=== PATIENT | female | born 1975 | race Caucasian/White ===

== ENCOUNTER 2017-01-13 17:57 | Emergency (ER) | payer MEDICAID, OTHER ==
[~2017-01-13] VITALS: Wt 61.0 kg
--- NOTE | 2017-01-13 18:38 | ERD ---
ER Documentation Chief Complaint Date/Time DATE: 01/13/17 TIME: 18:29 Chief Complaint FOUL-SMELLING VAG DISCHARGE X1 MONTH HPI 41-year-old female presents emergency department for vaginal odor for almost a month. She is sexually active with 2 partners. Her sexual partners has no symptoms. Last sexual activity was 1 week ago. Stated that she does not use tampons or pads. Last menstrual period was about a week ago. G3 and P3 1 ectopic with 6 abortions. Denies headache, dizziness, blurred vision, neck pain, shoulder pain, chest pain , abdominal pain, pelvic pain, vaginal discharge, vaginal bleeding, vaginal lesions, vaginal rash, back pain, nausea, vomiting, , possibility of being , trauma, recent antibiotic use in the last 3 months, fever, chills. No known drug allergies. No past medical history. No surgeries. Does not take any prescription medication at home. Social: Not working this time. Smokes about 20 sticks of cigarettes a day. Denies alcoholic beverages, use of illegal drugs. ROS All systems reviewed and are negative except as per history of present illness. Medications Home Meds Active Scripts Ibuprofen* (Motrin*) 600 Mg Tab, 600 MG PO Q8, #30 TAB Prov:KEN SMITH MD 01/13/17 Acetaminophen* (Tylophen*) 500 Mg Capsule, 1 CAP PO Q6H Y for PAIN AND OR ELEVATED TEMP, #20 CAP Prov:KELLEY HAMILTON F 01/13/17 Ibuprofen* (Motrin*) 600 Mg Tab, 600 MG PO Q8, #20 TAB Prov:EMY HAMILTONAR F 01/13/17 Allergies Allergies: Coded Allergies: No Known Allergy (Unverified , 01/13/17) Physical Exam Vitals Vital Signs Date Time Temp Pulse Resp B/P Pulse Ox O2 Delivery O2 Flow Rate FiO2 01/13/17 18:02 97.2 84 18 123/70 98 Physical Exam Const: [] Head: Atraumatic Eyes: Normal Conjunctiva ENT: Normal External Ears, Nose and Mouth. Neck: Full range of motion..~ No meningismus. Resp: Clear to auscultation bilaterally Cardio: Regular rate and rhythm, no murmurs Abd: Soft, non tender, non distended. Normal bowel sounds. There is no right upper/right lower/epigastric/left upper/lower abdominal tenderness and likely palpation. There is no pelvic tenderness light and palpation. Skin: No petechiae or rashes Back: No midline or flank tenderness. No CVA tenderness. Ext: No cyanosis, or edema Neur: Awake and alert Psych: Normal Mood and Affect Results 24 hrs Laboratory Tests Test 01/13/17 18:50 Urine Color YELLOW Urine Clarity SLIGHTLY CLOUDY Urine pH 5.0 Urine Specific [place] 1.021 Urine Ketones NEGATIVEmg/dL Urine Nitrite POSITIVEmg/dL Urine Bilirubin NEGATIVEmg/dL Urine Urobilinogen NEGATIVEmg/dL Urine Leukocyte Esterase NEGATIVELeu/ul Urine Microscopic RBC 1/HPF Urine Microscopic WBC 4/HPF Urine Squamous Epithelial Cells FEW/HPF Urine Bacteria FEW/HPF Urine Mucus FEW/HPF Urine Hemoglobin NEGATIVEmg/dL Urine Glucose NEGATIVEmg/dL Urine Total Protein NEGATIVEmg/dl Current Medications Medications (Trade) Dose Ordered Sig/Dolores Route PRN Reason Start Time Stop Time Status Last Admin Dose Admin Ceftriaxone Sodium (Rocephin) 250 mg ONCE ONCE IM 01/13/17 20:30 01/13/17 20:31 DC Azithromycin (Zithromax) 1,000 mg ONCE ONCE PO 01/13/17 20:30 01/13/17 20:31 DC Procedures/MDM 41-year-old female presents emergency department for vaginal odor for almost a month. She is sexually active with 2 partners. Her sexual partners has no symptoms. Last sexual activity was 1 week ago. Stated that she does not use tampons or pads. Last menstrual period was about a week ago. G3 and P3 1 ectopic with 6 abortions. Denies headache, dizziness, blurred vision, neck pain, shoulder pain, chest pain , abdominal pain, pelvic pain, vaginal discharge, vaginal bleeding, vaginal lesions, vaginal rash, back pain, nausea, vomiting, , possibility of being , trauma, recent antibiotic use in the last 3 months, fever, chills. No known drug allergies. No past medical history. No surgeries. Does not take any prescription medication at home. Social: Not working this time. Smokes about 20 sticks of cigarettes a day. Denies alcoholic beverages, use of illegal drugs. Physical exam: Unremarkable. Patient even and unlabored. Lung sounds are clear to auscultation. There is no right upper/right lower/epigastric/left upper/lower abdominal tenderness and likely palpation. There is no pelvic tenderness light and palpation. No CVA tenderness. Patient refuses to be examined on her vaginal area stating that she does not need this examination. Disease process was explained to the patient. Patient verbalized understanding and agreed with the plan of care. POC urine : Negative. Urinalysis: Positive nitrites. Slightly cloudy. Culture urine: Awaiting for results. Urine for gonorrhea and Chlamydia: Awaiting for results. Treatment: Ceftriaxone IM. Azithromycin 1 g p.o. Prescription: Motrin. Tylenol. Eloped prior to treatment at around 20:39. Departure Diagnosis: Primary Impression: Vaginal odor Condition: Stable KELLEY HAMILTON Jan 13, 2017 18:38 department for any new symptoms or any worsening of symptoms. All questions and concerns are answered. Patient verbalized understanding and agreed with the plan of care. KELLEY HAMILTON Jan 13, 2017 18:38
[2017-01-13 19:13] LABS: ADD UMIC YES; UR ASCORBIC ACID NEGATIVE (NEGATIVE); UR BACTERIA FEW /HPF (NONE SEEN); UR BILIRUBIN (Dip) NEGATIVE (NEGATIVE); UR BLOOD (Dip) NEGATIVE (NEGATIVE); UR CLARITY SLIGHTLY CLOUDY (CLEAR); UR COLOR YELLOW (YELLOW); UR GLUCOSE (Dip) NEGATIVE (NEGATIVE); UR KETONES (Dip) NEGATIVE (NEGATIVE); UR LEUKOCYTE ESTERASE (Dip) NEGATIVE Leu/ul (NEGATIVE); UR MUCUS FEW /HPF (NONE SEEN); UR NITRITE (Dip) POSITIVE (NEGATIVE); UR RBC 1 /HPF (0-5); UR SPECIFIC GRAVITY (Dip) 1.021 (1.003-1.030); UR SQUAMOUS EPITHELIAL CELL FEW /HPF (FEW); UR TOTAL PROTEIN (Dip) NEGATIVE (NEGATIVE); UR UROBILINOGEN (Dip) NEGATIVE (NEGATIVE)
[2017-01-13] MEDS ORDERED: ACET500C5 PO (20:05)
[2017-01-13] MEDS ORDERED: IBUP-1542 PO ×2 (20:05→21:41)
[2017-01-13] MEDS ORDERED: AZITHROMYCIN 250 MG TAB PO ONE (20:30)
[2017-01-13] MEDS ORDERED: CEFTRIAXONE 250 MG INJ IM ONE (20:30)
== END 2017-01-13 20:39 | disposition left against medical advice (07) ==
LOC: FTE 17:57
DX: N89.8 Other specified noninflammatory disorders of vagina (principal)
CPT/HCPCS: 81001; 87086; 87591; J0696; Z7502; Z7610; 99283

== ENCOUNTER 2017-01-13 21:32 | Emergency (ER) | payer OTHER ==
[~2017-01-13] VITALS: Ht 160 cm; Wt 61.0 kg
[~2017-01-13 21:32] MED LIST: ACET500C5 PO; IBUP-1542 PO
[2017-01-13] MEDS ORDERED: ONDANSETRON (ODT) 4 MG TAB ODT STA (21:34)
[2017-01-13 21:35] VITALS: Ht 160 cm; Wt 61.0 kg
[2017-01-13] MEDS ORDERED: IBUP-1542 PO (21:41)
[2017-01-13] MEDS ORDERED: CEFTRIAXONE 250 MG INJ IM ONE (22:00)
[2017-01-13] MEDS ORDERED: AZITHROMYCIN 250 MG TAB PO ONE (22:00)
--- NOTE | 2017-01-13 23:22 | ERD ---
ER Documentation Chief Complaint Date/Time DATE: 01/13/17 TIME: 23:19 Chief Complaint dysuria, HPI Patient is a 41-year-old female who presents for medications. The patient was seen just prior in the emergency department and was going to be treated for a possible STD with ceftriaxone and Zithromax however she had to leave to take care of and parent and said that she will come back. She rechecked into the emergency department to get her medications. The patient has already had a workup done on the previous visit today. She has no other complaints. She said that she has had vaginal discharge with a foul-smelling odor. ROS All systems reviewed and are negative except as per history of present illness. Medications Home Meds Active Scripts Ibuprofen* (Motrin*) 600 Mg Tab, 600 MG PO Q8, #30 TAB Prov:KEN SMITH MD 01/13/17 Acetaminophen* (Tylophen*) 500 Mg Capsule, 1 CAP PO Q6H Y for PAIN AND OR ELEVATED TEMP, #20 CAP Prov:KELLEY HAMILTON 01/13/17 Ibuprofen* (Motrin*) 600 Mg Tab, 600 MG PO Q8, #20 TAB Prov:KELLEY HAMILTON F 01/13/17 Allergies Allergies: Coded Allergies: No Known Allergy (Unverified , 01/13/17) PMhx/Soc Medical and Surgical Hx: pt denies Medical Hx, pt denies Surgical Hx Hx Alcohol Use: No Hx Substance Use: No Hx Tobacco Use: No Smoking Status: Unknown if ever smoked FmHx Family History: No diabetes Physical Exam Vitals Vital Signs Date Time Temp Pulse Resp B/P Pulse Ox O2 Delivery O2 Flow Rate FiO2 01/13/17 21:35 98.7 91 19 117/79 99 Physical Exam Const: No acute distress Head: Atraumatic Eyes: Normal Conjunctiva ENT: Normal External Ears, Nose and Mouth. Neck: Full range of motion..~ No meningismus. Resp: Clear to auscultation bilaterally Cardio: Regular rate and rhythm, no murmurs Abd: Soft, non tender, non distended. Normal bowel sounds Skin: No petechiae or rashes Back: No midline or flank tenderness Ext: No cyanosis, or edema Neur: Awake and alert Psych: Normal Mood and Affect Results 24 hrs Current Medications Medications (Trade) Dose Ordered Sig/Dolores Route PRN Reason Start Time Stop Time Status Last Admin Dose Admin Ceftriaxone Sodium (Rocephin) 250 mg ONCE ONCE IM 01/13/17 22:00 01/13/17 22:01 DC 01/13/17 21:53 Azithromycin (Zithromax) 1,000 mg ONCE ONCE PO 01/13/17 22:00 01/13/17 22:01 DC 01/13/17 21:53 Ondansetron HCl (Zofran Odt) 4 mg ONCE STAT ODT 01/13/17 21:34 01/13/17 21:50 DC Procedures/MDM Patient will be treated for potential STDs. She has already had studies sent from the previous visit. She will be given ceftriaxone 250 mg IM and Zithromax 1 g p.o. She will be discharged and can return for any worsening symptoms. Departure Diagnosis: Primary Impression: Dysuria Additional Impression: Vaginal odor Condition: Fair Patient Instructions: Dysuria Referrals: SD VAZQUEZ (PCP) Additional Instructions: Call your primary care doctor TOMORROW for an appointment during the next 1-2 days.See the doctor sooner or return here if your condition worsens before your appointment time. KEN SMITH MD Jan 13, 2017 23:22
== END 2017-01-13 22:00 | disposition home or self-care (01) ==
LOC: E/R 21:32
DX: R30.0 Dysuria (principal); N89.8 Other specified noninflammatory disorders of vagina
CPT/HCPCS: 96372; Z7502